=== PATIENT | female | born 1980 | race Caucasian/White ===

== ENCOUNTER 2019-04-27 21:56 | Emergency (ER) | payer BC ==
[~2019-04-27] VITALS: Ht 154.9 cm; Wt 52.2 kg
[2019-04-27 22:13] VITALS: BP 121/86
--- NOTE | 2019-04-27 22:15 | NUR ---
ED Nurse Note: Patient walked in to Er c/o lower abdominal pain 5/10. Stated that had UTI 2 weeks ago and took antibiotic for it. AAO x4, VSS at this time, skin is dry warm to touch. Patient has some vaginal spotting.
[2019-04-27 22:29] LABS: APPEARANCE,URINE CLEAR; BILIRUBIN, URINE NEGATIVE (NEGATIVE); COLOR,URINE PALE YELLOW; GLUCOSE, URINE (UA) NEGATIVE (NEGATIVE); KETONES,URINE NEGATIVE (NEGATIVE); LEUKOCYTE ESTERASE ,URINE 2+ (NEGATIVE); NITRITE,URINE NEGATIVE (NEGATIVE); PH,URINE 6.5 (4.5-8.0); PROTEIN,URINE NEGATIVE (NEGATIVE); UROBILINOGEN,URINE NORMAL MG/DL (0.0-1.0)
[2019-04-28 00:20] VITALS: BP 121/86
--- NOTE | 2019-04-28 00:20 | Diagnostic Imaging Report ---
EXAM: US Pelvis Complete, Transabdominal CLINICAL HISTORY: ABD PAIN TECHNIQUE: Real-time transabdominal pelvic ultrasound (complete) with image documentation. COMPARISON: No relevant prior studies available. FINDINGS: Uterus/cervix: Endometrium measures 1.9 cm in thickness. Uterus measures 6.1 x 5.6 x 4.1 cm. No myometrial mass. Right ovary: Right ovary measures 4 x 3.1 x 2.2 cm. Normal blood flow. Left ovary: Left ovary measures 2.5 x 2.8 x 1.7 cm. Normal blood flow. Free fluid: No free fluid. Bladder: Unremarkable as visualized. Wall is normal thickness for degree of distention. IMPRESSION: Endometrium measures 1.9 cm in thickness. This may be possibly thickened. Correlate with menstrual cycle.
--- NOTE | 2019-04-28 00:21 | NUR ---
ER DISCHARGE NOTE: Patient is cleared to be discharged per ERMD, pt is aox4, on room air, with stable vital signs. pt was given dc and prescription instructions, pt was able to verbalize understanding, pt id band removed . pt is able to ambulate with steady gait. pt took all belongings.
--- NOTE | 2019-04-28 00:40 | Emergency Room Report ---
History of Present Illness General Chief Complaint: Abdominal Pain Source: Patient Present Illness HPI 39-year-old female presents ED for evaluation. States she is been having frequent urination and some lower abdominal pain. States that 2 weeks ago she was prescribed antibiotics for UTI. Was prescribed Bactrim by urgent care. States that she completed the antibiotics and states she felt better however her symptoms have returned. Pain is dull, 4 out of 10, nonradiating. Notes nausea, denies vomiting. States she is also having some vaginal bleeding. Denies being . No other aggravating relieving factors. Denies any other associated symptoms Allergies: Coded Allergies: PENICILLINS (Verified Allergy, Unknown, 04/27/19) Patient History Past Medical History: none Past Surgical History: none Pertinent Family History: none Social History: Denies: smoking, alcohol use, drug use Last Menstrual Period: 04/27/19 Now: No : 4 Para: 3 Immunizations: UTD Reviewed Nursing Documentation: PMH: Agreed; PSxH: Agreed Nursing Documentation-PMH Past Medical History: No History, Except For Hx Gastrointestinal Problems: No - ovarian cyst Review of Systems All Other Systems: negative except mentioned in HPI Physical Exam Vital Signs Date Time Temp Pulse Resp B/P (MAP) Pulse Ox O2 Delivery O2 Flow Rate FiO2 04/27/19 21:58 98.2 81 18 121/86 (98) 98 Room Air Sp02 EP Interpretation: reviewed, normal General Appearance: no apparent distress, alert, GCS 15, non-toxic Head: normocephalic, atraumatic Eyes: bilateral eye normal inspection, bilateral eye PERRL ENT: hearing grossly normal, normal pharynx, no angioedema, normal voice Neck: full range of motion, supple/symm/no masses Respiratory: chest non-tender, lungs clear, normal breath sounds, speaking full sentences Cardiovascular #1: regular rate, rhythm, no edema Cardiovascular #2: 2+ carotid (R), 2+ carotid (L), 2+ radial (R), 2+ radial (L) , 2+ dorsalis pedis (R), 2+ dorsalis pedis (L) Gastrointestinal: normal bowel sounds, non tender, soft, non-distended, no guarding, no rebound Rectal: deferred Genitourinary: normal inspection, no CVA tenderness Musculoskeletal: back normal, gait/station normal, normal range of motion, non- tender Neurologic: alert, oriented x3, responsive, motor strength/tone normal, sensory intact, speech normal Psychiatric: judgement/insight normal, memory normal, mood/affect normal, no suicidal/homicidal ideation Reflexes: 3+ bicep (R), 3+ bicep (L), 3+ tricep (R), 3+ tricep (L), 3+ knee (R) , 3+ knee (L) Lymphatic: no adenopathy Medical Decision Making Diagnostic Impression: Primary Impression: Pelvic pain ER Course Hospital Course 39 yo F presents c/o dysuria, pelvic pain, bleeding Differential diagnoses include: UTI, cystitis, pyelonephritis Clinical course Patient placed on stretcher. After initial history and physical I ordered UA, urine , US. UA noted to be unremarkable. Pelvic US - unremarkable Discussed findings with patient. I do not believe patient requires additional antibiotics at this time. States that she also bad reactions to antibiotics. Did have C. difficile once after taking clindamycin. Is currently taking probiotics after her last round of Bactrim. Will send urine culture. Ultrasound unremarkable. Patient states she is due for her. In 4 days and it is possible that her period came early Safe for discharge for close outpatient follow-up. States she has a PMD Diagnosis - pelvic pain Stable and discharged home. Instructed to followup with PMD. Return to ED if symptoms recur or worsen Labs Test 04/27/19 22:16 Urine Color Pale yellow Urine Appearance Clear Urine pH 6.5 (4.5-8.0) Urine Specific [place] 1.010 (1.005-1.035) Urine Protein Negative (NEGATIVE) Urine Glucose (UA) Negative (NEGATIVE) Urine Ketones Negative (NEGATIVE) Urine Blood 3+ (NEGATIVE) Urine Nitrite Negative (NEGATIVE) Urine Bilirubin Negative (NEGATIVE) Urine Urobilinogen Normal MG/DL (0.0-1.0) Urine Leukocyte Esterase 2+ (NEGATIVE) Urine RBC 2-4 /HPF (0 - 2) Urine WBC 5-10 /HPF (0 - 2) Urine Squamous Epithelial Cells Few /LPF (NONE/OCC) Urine Bacteria Few /HPF (NONE) Urine HCG, Qualitative Negative (NEGATIVE) CT/MRI/US Diagnostic Results CT/MRI/US Diagnostic Results : Imaging Test Ordered: Pelvic US Impression Uterus/cervix: Endometrium measures 1.9 cm in thickness. Uterus measures 6.1 x 5.6 x 4.1 cm. No myometrial mass. Right ovary: Right ovary measures 4 x 3.1 x 2.2 cm. Normal blood flow. Left ovary: Left ovary measures 2.5 x 2.8 x 1.7 cm. Normal blood flow. Free fluid: No free fluid. Bladder: Unremarkable as visualized. Wall is normal thickness for degree of distention. Last Vital Signs Date Time Temp Pulse Resp B/P (MAP) Pulse Ox O2 Delivery O2 Flow Rate FiO2 04/28/19 00:20 98.2 18 121/86 98 Room Air 04/27/19 22:13 81 Status: improved Disposition: HOME, SELF-CARE Condition: Stable Patient Instructions: Pelvic Pain, Female, [id number], Dysuria Munir Moser MD Apr 28, 2019 00:40
== END 2019-04-28 00:22 | disposition home or self-care (01) ==
LOC: EMR 22:45
DX: R10.2 Pelvic and perineal pain (principal); R30.0 Dysuria; R35.0 Frequency of micturition; Z88.0 Allergy status to penicillin
CPT/HCPCS: 76856; 81003; 81025; 87086; 99284